=== PATIENT | female | born 1985 | race Caucasian/White ===

== ENCOUNTER 2017-02-19 19:44 | Emergency (ER) | payer OTHER ==
[~2017-02-19] VITALS: Ht 172.7 cm; Wt 89.8 kg
--- NOTE | ~2017-02-19 | CR181 ---
[facility] A Service of [facility] RADIOLOGY TEXT RESULTS PATIENT: NAVI URRUTIA LOCATION: CFTX : 81 UNIT #: [id number] AGE: [address]: June Graves APRN SEX: F ORDER DR: [id number] [facility] [address] [place], [place] [address] [id number] E MR#: [id number] Acc #: [id number] NAME: NAVI URRUTIA. : 1985 SEX: F STUDY DATE/TIME: 02/19/2017 20:32 UNIT: [facility] ROOM: STUDY DESCRIPTION: CR Lumbar Spine 2 or 3 Views Attending Physician: June Graves A.P.R.N. Ordering Physician: June Graves A.P.R.N. Primary Care Physician: Primary Care Physician No MEDICAL IMAGING REPORT This report is preliminary unless electronic signature is present EXAM Lumbar spine 3 views HISTORY Back pain today. Right leg pain. No injury. FINDINGS Three views of the lumbar spine demonstrate satisfactory lumbar alignment. Mild disc space narrowing at L5-S1. No fracture or subluxation. No abnormal sclerosis. IMPRESSION No acute findings. Mild disc space narrowing at L5-S1. Dictated by... Christiano Concepcion M.D. THIS IS AN ELECTRONICALLY VERIFIED REPORT Christiano Concepcion M.D. at 02/20/2017 11:45 PM Shayla TD: 02/20/2017 08:38 JOB #: [id number] MEDICAL IMAGING REPORT Page 1 of 1 COPY
[~2017-02-19 19:44] MED LIST: ACETAMINOPHEN PO; ADVIL LIQUI-GE200 MG; ALBUTEROL17 GM INH; ALBUTEROL20 ml INH; AMOXICILLIN PO; DELTASONE20 MG PO; DEPO-PROVER150 MG/ML INJ; DICLOFENAC PO; DIFLUCAN PO; ELIMITE60 GM TOP; ERYTHROCIN STE500 M1 PO; FLEXERIL10 M1 PO; GUAIFENESIN LA600 M1 PO; MACRODANTIN PO; MEDROL DOSEPAK4 MG DOB; NAPROSYN500 MG PO; NAPROXEN PO; NO MEDICATIONS; OMNICEF PO; PHENERGAN25 M1 PO; PHENERGAN25 MG; PHENERGAN25 MG PO; PREDNISONE PO; PRENATAL1 TA1 PO; PROMETHAZINE D118 ML PO; PROZAC PO; ROBAXIN500 MG PO; TESSALON PERLE100 M1 PO; THERAFLU COLD1 EAC1 PO; TORADOL10 MG PO; TYLENOL #3; VOLTAREN75 MG PO; ZITHROMAX500 MG PO; [UNRECOGNIZED DRUG - OTHER] PO
[2017-02-19 20:12] LABS: URINE SOURCE CLEAN CATCH
[2017-02-19 20:18] LABS: URINE APPEARANCE CLEAR; URINE BILIRUBIN NEG (NEG); URINE BLOOD NEG (NEG); URINE COLOR YELLOW; URINE GLUCOSE NORM (NORM); URINE KETONE NEG (NEG); URINE LEUKOCYTE ESTERASE NEG (NEG); URINE NITRATE NEG (NEG); URINE PROTEIN NEG (NEG); URINE UROBILINOGEN NORM (NORM)
[2017-02-19 20:19] LABS: CULTURE INDICATED? NO
== END 2017-02-19 21:17 | disposition home or self-care (01) ==
LOC: CED 19:44 → CFTX 19:44
PROVIDERS: Nurse Practitioner
DX: M54.41 Lumbago with sciatica, right side (principal); Z90.49 Acquired absence of other specified parts of digestive tract; Z98.51 Tubal ligation status; Z88.0 Allergy status to penicillin
CPT/HCPCS: 72100; 81003; 84703; 96372; 99284; J1885